=== PATIENT | male | born 1985 | race American Indian/Alaskan Native ===

== ENCOUNTER 2019-01-29 21:42 | Emergency (ER) | payer SELFPAY ==
[2019-01-29] MEDS ORDERED: TYLENOL PO ONE (22:19)
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
[2019-01-29 22:21] VITALS: BP 149/100
== END 2019-01-29 23:07 | disposition left against medical advice (07) ==
LOC: ED 21:42
DX: M54.2 Cervicalgia (principal); Z53.21 Procedure and treatment not carried out due to patient leaving prior to being seen by health care provider